=== PATIENT | male | born 1995 | race Caucasian/White ===

== ENCOUNTER 2016-09-05 08:34 | Emergency (ER) | payer BC ==
[~2016-09-05] VITALS: Ht 182.9 cm; Wt 83.3 kg
[2016-09-05] MEDS ORDERED: SODIUM CHLORIDE 0.9% 1,000 ML IV ONE (09:25)
[2016-09-05] MEDS ORDERED: ONDANSETRON 2MG/ML, 2ML ONE (09:28)
[2016-09-05] MEDS ORDERED: SODIUM CHLORIDE 0.9% 1,000ML IVBOLUS ONE (09:30)
[2016-09-05] MEDS ORDERED: SODIUM CHLORIDE FLUSH 10ML SYR IVF ONE (09:30)
[2016-09-05] MEDS ORDERED: ONDANSETRON 2MG/ML, 2ML IVPush ONE (09:30)
[2016-09-05 10:16] LABS: ASPARTATE AMINO TRANSFERASE 31 U/L (15-37); BLOOD UREA NITROGEN 23 mg/dL (7-18)
[2016-09-05 11:16] VITALS: BP 128/60
== END 2016-09-05 11:19 | disposition home or self-care (01) ==
LOC: ED 11:04
DX: R11.2 Nausea with vomiting, unspecified (principal)
CPT/HCPCS: 36415; 80053; 83690; 85025; 96361; 96374; 99285; J2405; J7030